=== PATIENT | male | born 1990 | race Two or more races ===

== ENCOUNTER 2022-08-11 21:29 | Emergency (ER) | payer MEDICAID ==
[~2022-08-11] VITALS: Ht 180.3 cm; Wt 153.3 kg
[2022-08-11 21:33] VITALS: BP_SYST 158
--- NOTE | 2022-08-11 21:40 | NUR ---
PT HERE C/O RLQ ABD PAIN ON AND OFF X1 MONTH AND LT NECK PAIN PER PT HIS LYMP NODES WERE SWOLLEN/INFLAMMED X1 MONTH. DENIES N/V/D, DENIES DYSURIA. DENIES FEVER. PMH:DENIES PT AAOX4, NO SOB NOTED AND NAD. PENDING MD OWEN
[2022-08-11 22:16] LABS: BILIRUBIN,URINE NEGATIVE (NEGATIVE); BLOOD, URINE NEGATIVE (NEGATIVE); CLARITY/URINE CLEAR (CLEAR); COLOR,URINE YELLOW (YELLOW); GLUCOSE,URINE NEGATIVE (NEGATIVE); KETONES,URINE NEGATIVE (NEGATIVE); LEUKOCYTE ESTERASE ,URINE NEGATIVE (NEGATIVE); NITRITE, URINE NEGATIVE (NEGATIVE); PROTEIN URINE NEGATIVE (NEGATIVE); UROBILINOGEN,URINE 0.2 (0.2-1.0)
[2022-08-11 22:22] LABS: BASOPHILS % (AUTO) 0.5 % (0.0-2.0); EOSINOPHILS # (AUTO) 0.2 K/uL (0.0-0.4); HEMATOCRIT 40.8 % (36-54); HEMOGLOBIN 14.3 g/dL (14.0-18.0); LYMPHOCYTES # (AUTO) 1.7 K/uL (1.0-5.5); LYMPHOCYTES % (AUTO) 19.6 % (20.5-51.5); MEAN CORPUSCULAR HEMOGLOBIN 30 pg (27-31); MEAN CORPUSCULAR HGB CONC 35 % (32-36); MEAN CORPUSCULAR VOLUME 86 fL (79.0-98.0); MONOCYTES # (AUTO) 0.5 K/uL (0.0-1.0); MONOCYTES % (AUTO) 5.5 % (1.7-9.3); NEUTROPHILS # (AUTO) 6.2 K/uL (1.8-7.7); NEUTROPHILS % (AUTO) 72.4 % (40.0-70.0); PLATELET COUNT (AUTO) 202 K/uL (130-430); RED BLOOD CELL COUNT(AUTO) 4.75 MIL/uL (4.2-6.2); RED CELL DISTRIBUTION WIDTH 13.3 % (9.0-15.0); WHITE BLOOD COUNT (AUTO) 8.6 K/uL (4.8-10.8)
[2022-08-11 22:34] LABS: CALCIUM 9.2 mg/dL (8.4-11.0); CREATININE 1.1 mg/dL (0.55-1.30); POTASSIUM 3.6 mmol/L (3.5-5.1)
[2022-08-11 22:41] LABS: ALBUMIN 3.7 g/dL (3.4-4.8); TOTAL BILIRUBIN 0.2 mg/dL (0.0-1.0)
--- NOTE | 2022-08-12 00:25 | NUR ---
Patient to ER bed H1 to gown for evaluation. Side rails up. Report given to LISA WHITE.
--- NOTE | 2022-08-12 00:30 | NUR ---
Patient A/Ox4, VSS, ambulatory, resp even and unlabored. Patient lying in bed with safety procautions in place. Nad noted at this time.
--- NOTE | 2022-08-12 01:00 | NUR ---
ZEKE Knowles at bedside.
--- NOTE | 2022-08-12 01:10 | NUR ---
Patient presents to ED from [facility] with c/o abdominal pain x1 month and swollen lymph node 1 day. Patient reports pain 0/10 at this time. Patient reports intermitten pain 5/10 prior to coming to ED. Patient states "I dont know whats wrong with me, but I've been dealing with this for a while now. I just want to get checked out." Patient lying in bed with side rails raised. Nad noted at this time.
--- NOTE | 2022-08-12 01:30 | NUR ---
Patient taken to xrays accompanied by radiology.
[2022-08-12] MEDS ORDERED: ACYC5CRE2 TP (02:55)
[2022-08-12] MEDS ORDERED: DICY10CA13 PO (02:55)
[2022-08-12 02:58] VITALS: BP_SYST 157
--- NOTE | 2022-08-12 02:58 | NUR ---
Patient given written and verbal discharge instructions and verbalizes understanding. ER MD discussed with patient the results and treatment provided. Patient in stable condition. ID arm band removed. Patient educated on pain management and to follow up with PMD. Pain Scale 0/10. Opportunity for questions provided and answered. Patient in stable condition upon discharge.
== END 2022-08-12 02:58 | disposition home or self-care (01) ==
LOC: SED 21:29
DX: B00.89 Other herpesviral infection (principal); R10.11 Right upper quadrant pain; Z79.899 Other long term (current) drug therapy
CPT/HCPCS: 36415; 76705; 80053; 81003; 83690; 85025; 99284